=== PATIENT | male | born 1985 | race African-American/Black ===

== ENCOUNTER 2021-06-19 17:09 | Emergency (ER) | payer SELFPAY ==
[~2021-06-19] VITALS: Ht 188 cm; Wt 77.1 kg
[2021-06-19 17:29] VITALS: BP 124/76
--- NOTE | 2021-06-19 17:39 | NUR ---
PELVIC PAIN 4/10 X 2 WEEKS. GIRLFRIEND DIAGNOSED W/ PARVUM DNAREQUESTING FOR PRESCIPTION MEDS. WILL CONTINUE TO MONITOR THE PATIENT.
--- NOTE | 2021-06-19 17:41 | NUR ---
SEEN AND EXAMINED BY JUDY SIMMONS.
--- NOTE | 2021-06-19 17:51 | NUR ---
URINE SPECIMEN COLLECTED AND SENT TO LAB.
[2021-06-19 17:58] LABS: BILIRUBIN,URINE Negative (NEGATIVE); COLOR,URINE YELLOW (YELLOW); LEUKOCYTE ESTERASE ,URINE Negative (NEGATIVE); NITRITE, URINE Negative (NEGATIVE); PH,URINE 6.5 (5.0-8.0); PROTEIN,URINE Negative (NEGATIVE); UGLUCOSE Negative (NEGATIVE); UROBILINOGEN,URINE 0.2 EU/dL (0.2)
[2021-06-19] MEDS ORDERED: AZITHROMYCIN 250 MG TABLET PO ONE (18:00)
[2021-06-19 18:02] LABS: BACTERIA,URINE Rare /HPF (None Seen); SQUAMOUS EPITHELIAL CELL,UR Few /HPF (None Seen); WBC,URINE NONE SEEN /HPF (0-3)
[2021-06-19] MEDS ORDERED: AZITHROMYCIN 250 MG TABLET ONE (18:03)
--- NOTE | 2021-06-19 18:59 | NUR ---
Patient discharged to home in stable condition. Written and verbal after care instructions given. Patient verbalizes understanding of instruction.
== END 2021-06-19 19:03 | disposition home or self-care (01) ==
LOC: ER 17:16
DX: Z20.2 Contact with and (suspected) exposure to infections with a predominantly sexual mode of transmission (principal); F12.90 Cannabis use, unspecified, uncomplicated
CPT/HCPCS: 81001; 87086-TC